=== PATIENT | female | born 1935 | race Caucasian/White ===

== ENCOUNTER 2021-05-19 08:55 | Day surgery (SDC) | payer MEDICARE ==
[2021-05-19] MEDS ORDERED: LIDOCAINE HCL 2% 100 MG/5 ML IJ ONE (08:56)
[2021-05-19] MEDS ORDERED: Depo-Medrol 40 MG/ML IM ONE (08:56)
[2021-05-19 09:52] LABS: INR 1.25 (0.8-3.0); PROTIME 14.7 SECONDS (9.4-12.5)
[2021-05-19] MEDS ORDERED: Lactated Ringers 1,000 ML IV ONE (10:17)
[2021-05-19] MEDS ORDERED: DIPRIVAN 200 MG/20 ML IV ONE (10:41)
--- NOTE | 2021-05-19 11:51 | XRAY ---
Indication: Bilateral L4-S1 MBB. Intraoperative fluoroscopy provided for 8 seconds. Single digital spot image submitted for interpretation demonstrates posterior needle tips projecting over the expected left and right L4-S1 nerve roots. Correlate with intraoperative findings/report.
--- NOTE | 2021-05-19 11:58 | XRAY ---
8 seconds fluoroscopy time in surgery for bilateral L4-S1 MBB.
== END 2021-05-19 11:05 | disposition home or self-care (01) ==
LOC: SDC-PAIN 08:55
PROVIDERS: ATTEND Psychiatry & Neurology Pain Medicine
DX: M47.816 Spondylosis without myelopathy or radiculopathy, lumbar region (principal); I10 Essential (primary) hypertension; N18.4 Chronic kidney disease, stage 4 (severe); Z79.01 Long term (current) use of anticoagulants; Z79.899 Other long term (current) drug therapy
CPT/HCPCS: 36415; 64493; 64494; 72020; 77002; 85610; J1030; J2704